=== PATIENT | female | born 1980 | race Caucasian/White ===

== ENCOUNTER 2017-07-02 18:01 | Emergency (ER) | payer MEDICAID, OTHER, SELFPAY ==
[~2017-07-02] VITALS: Ht 165.1 cm; Wt 67.1 kg
[2017-07-02 18:54] LABS: HEMATOCRIT 41.5 % (34.6-47.8); HEMOGLOBIN 14.3 g/dL (11.7-16.4); WHITE BLOOD COUNT 7.2 x10^3/uL (3.4-10)
[2017-07-02] MEDS ORDERED: SODIUM CHLORIDE FLUSH 10ML SYR IVF ONE (19:00)
[2017-07-02] MEDS ORDERED: SODIUM CHLORIDE 0.9% 1,000ML IVBOLUS ONE (19:00)
[2017-07-02 19:05] LABS: ASPARTATE AMINO TRANSFERASE 248 U/L (15-37); BLOOD UREA NITROGEN 3 mg/dL (7-18)
[2017-07-02] MEDS ORDERED: KETOROLAC 30 MG/1 ML ONE (20:17)
[2017-07-02] MEDS ORDERED: KETOROLAC 30 MG/1 ML IVPush ONE (20:30)
[2017-07-02 20:35] VITALS: BP 133/89
== END 2017-07-02 20:36 | disposition home or self-care (01) ==
LOC: ED 20:30
DX: K70.10 Alcoholic hepatitis without ascites (principal); F10.120 Alcohol abuse with intoxication, uncomplicated; M32.9 Systemic lupus erythematosus, unspecified
CPT/HCPCS: 36415; 74020; 80053; 80307; 81001; 83690; 84703; 85025; 85610; 85651; 85730; 87086; 93005; 96361; 96374; 99285; J1885; J7030; G0479